=== PATIENT | male | born 1995 | race African-American/Black ===

== ENCOUNTER 2018-08-21 16:14 | Emergency (ER) | payer OTHER ==
[~2018-08-21] VITALS: Ht 182.9 cm; Wt 68.5 kg
[~2018-08-21 16:14] MED LIST: AUGMENTIN 875875 MG PO; DEPAKOTE500 MG PO; LOXAPINE10 MG; REMERON15 M1; TRAMADOL 50 MG50 MG PO
[2018-08-21] MEDS ORDERED: KEPPRA 500 MG500 M1 PO (16:23)
[2018-08-21 17:03] VITALS: BP 152/83
== END 2018-08-21 17:18 | disposition home or self-care (01) ==
LOC: ER 16:14
DX: T69.1XXA Chilblains, initial encounter (principal); X31.XXXA Exposure to excessive natural cold, initial encounter; F31.9 Bipolar disorder, unspecified; F20.9 Schizophrenia, unspecified; F90.9 Attention-deficit hyperactivity disorder, unspecified type; Z88.2 Allergy status to sulfonamides; Z88.8 Allergy status to other drugs, medicaments and biological substances

== ENCOUNTER 2018-12-19 12:04 | Emergency (ER) | payer OTHER ==
[~2018-12-19] VITALS: Ht 185.4 cm; Wt 74.8 kg
[~2018-12-19 12:04] MED LIST changes: +KEPPRA 500 MG500 M1 PO
[2018-12-19 13:05] LABS: ABSOLUTE NEUTROPHILS 4.8 thou/uL (1.4-8.2); BASOPHILS 0.5 % (0.0-2.0); EOSINOPHILS 4.5 % (0.0-3.0); HEMATOCRIT 48.3 % (42.0-52.0); HEMOGLOBIN 15.9 gm/dL (14.0-18.0); LYMPHOCYTES 25.5 % (24.0-44.0); MCH 27.2 pg (26.0-34.0); MCV 82.3 fL (80.0-100.0); MONOCYTES 7.6 % (1.0-8.0); PLATELET COUNT 204 thou/uL (150-400); POLYS 61.9 % (36.0-66.0); RBC 5.87 mil/uL (4.50-6.00); RDW 14.9 % (10.5-14.5); WBC 7.7 thou/uL (4.0-11.0)
[2018-12-19 13:20] LABS: CALCIUM 9.8 mg/dL (8.5-10.1); CREATININE 0.7 mg/dL (0.7-1.3); POTASSIUM 4.3 mmol/L (3.5-5.1)
[2018-12-19 14:07] LABS: AMP/METHAMP POSITIVE (Negative); BARBITURATES Negative (Negative); BENZODIAZEPINES Negative (Negative); COCAINE Negative (Negative); METHADONE Negative (Negative); OPIATES Negative (Negative); PCP Negative (Negative)
[2018-12-19 14:43] VITALS: BP 95/50
== END 2018-12-19 14:56 | disposition home or self-care (01) ==
LOC: ER 12:04
PROVIDERS: Student in an Organized Health Care Education/Training Program
DX: R25.1 Tremor, unspecified (principal); F31.9 Bipolar disorder, unspecified; F20.9 Schizophrenia, unspecified; F90.9 Attention-deficit hyperactivity disorder, unspecified type; Z88.8 Allergy status to other drugs, medicaments and biological substances; Z88.2 Allergy status to sulfonamides

== ENCOUNTER 2019-06-26 14:15 | Emergency (ER) | payer OTHER ==
[~2019-06-26] VITALS: Ht 185.4 cm; Wt 74.8 kg
[2019-06-26] MEDS ORDERED: DEPAKOTE500 MG PO (14:39)
[2019-06-26] MEDS ORDERED: IBUPROFEN 600600 M1 PO (15:37)
[2019-06-26 15:39] VITALS: BP 139/75
== END 2019-06-26 15:39 | disposition home or self-care (01) ==
LOC: ER 14:15
DX: S00.83XA Contusion of other part of head, initial encounter (principal); F31.9 Bipolar disorder, unspecified; F20.9 Schizophrenia, unspecified; F90.9 Attention-deficit hyperactivity disorder, unspecified type; Z88.5 Allergy status to narcotic agent; Z88.8 Allergy status to other drugs, medicaments and biological substances; Z88.2 Allergy status to sulfonamides; Y04.2XXA Assault by strike against or bumped into by another person, initial encounter; Y92.89 Other specified places as the place of occurrence of the external cause; Y93.89 Activity, other specified; Y99.8 Other external cause status

== ENCOUNTER 2021-08-20 22:50 | Emergency (ER) | payer OTHER ==
[~2021-08-20] VITALS: Ht 185.4 cm; Wt 79.4 kg
[~2021-08-20 22:50] MED LIST changes: +IBUPROFEN 600600 M1 PO
[2021-08-21 01:50] VITALS: BP 148/96
== END 2021-08-21 01:48 | disposition home or self-care (01) ==
LOC: ER 22:50
DX: F10.129 Alcohol abuse with intoxication, unspecified (principal); Z20.822 Contact with and (suspected) exposure to COVID-19; G40.909 Epilepsy, unspecified, not intractable, without status epilepticus; F31.9 Bipolar disorder, unspecified; F20.9 Schizophrenia, unspecified; F90.9 Attention-deficit hyperactivity disorder, unspecified type; Z88.5 Allergy status to narcotic agent; Z88.2 Allergy status to sulfonamides; Z88.8 Allergy status to other drugs, medicaments and biological substances; Z79.899 Other long term (current) drug therapy